=== PATIENT | male | born 1960 | race African-American/Black ===

== ENCOUNTER 2020-12-18 10:37 | Inpatient (IN) | payer OTHER ==
[2020-12-18 10:58] VITALS: BMI 23.8
[2020-12-18] MEDS ORDERED: SODIUM CHLORIDE 0.9% 500 ML INFUS.BAG IV ONE (11:35)
[2020-12-18] MEDS ORDERED: ONDANSETRON 4 MG/2 ML VIAL IVPUSH ONE (11:35)
[2020-12-18] MEDS ORDERED: ONDANSETRON 4 MG/2 ML VIAL ONE (12:08)
[2020-12-18 13:08] LABS: EOS % 0.9 % (0-4.5); HEMATOCRIT 26.3 % (35.4-49); HEMOGLOBIN 8.4 GM/dL (11.7-16.9); LYMPH % 46.7 % (8-40); MCH 27.6 pg (25.7-33.7); MCHC 32.1 g/dl (32.0-35.9); MEAN CELL VOLUME 86.1 fl (80-96); MEAN PLT VOLUME 9.1 fl (7.5-11.1); MONO % 19.2 % (3.8-10.2); NEUT % 32.2 % (42.8-82.8); PLATELET COUNT 168 K/MM3 (134-434); RBC 3.05 M/mm3 (4.00-5.60); RDW 14.8 % (11.9-15.9); WHITE BLOOD COUNT 3.3 K/mm3 (4.0-10.0)
[2020-12-18] MEDS ORDERED: ASPIRIN 81 MG CHEWABLE TABLETS PO ONE (13:15)
[2020-12-18] MEDS ORDERED: ASPIRIN 81 MG CHEWABLE TABLETS ONE (13:23)
[2020-12-18 13:31] LABS: CHLORIDE 99 mmol/L (98-107); POTASSIUM 3.6 mmol/L (3.5-5.1); SODIUM 143 mmol/L (136-145)
[2020-12-18 13:32] LABS: EPI CELLS 8 /uL (0-25.1); HYALINE CASTS 1 /uL (0-3.1); PH,URINE >= 9.0 (5.0-8.0); URINE APPEARANCE CLEAR; URINE BACTERIA 142 /uL (0-1359); URINE BILIRUBIN NEGATIVE (NEGATIVE); URINE COLOR YELLOW; URINE GLUCOSE (UA) NEGATIVE (NEGATIVE); URINE KETONE TRACE (NEGATIVE); URINE LEUK ESTERASE NEGATIVE (NEGATIVE); URINE NITRITE NEGATIVE (NEGATIVE); URINE PROTEIN 2+ (NEGATIVE); URINE RBC 5 /uL (0-23.9); URINE WBC 1 /uL (0-25.8)
[2020-12-18 13:34] LABS: ALBUMIN 4.1 g/dl (3.4-5.0); ANION GAP 5 MMOL/L (8-16); BLOOD UREA NITROGEN 14.7 mg/dL (7-18); CALCIUM 9.7 mg/dL (8.5-10.1); CO2 39 mmol/L (21-32); LIPASE 161 U/L (73-393)
[2020-12-18 13:35] LABS: GLUCOSE,RANDOM 79 mg/dL (74-106)
[2020-12-18 13:37] LABS: CREATININE 1.1 mg/dL (0.55-1.3); SGOT/AST 202 U/L (15-37); SGPT/ALT 88 U/L (13-61)
[2020-12-18 13:39] LABS: BILIRUBIN,TOTAL 0.5 mg/dL (0.2-1); TOT PROT 9.1 g/dl (6.4-8.2)
[2020-12-18 13:40] LABS: ALK PHOS 66 U/L (45-117)
[2020-12-18] MEDS ORDERED: FOLIC ACID INJECTION - 1 MG, THIAMINE HCL 100 MG, MULTIVIT INJECTION ADULT 10 ML in SOD... IVPB ONE (18:26)
[2020-12-18] MEDS ORDERED: LORazepam 2 MG/ML SDV VIAL IVPUSH PRN (18:29)
[2020-12-18] MEDS ORDERED: SODIUM CHLORIDE 1,000 ML IV SCH (18:30)
[2020-12-18 22:10] LABS: URINE BARBITURATES NEGATIVE ng/ml (CUTOFF=200); URINE BENZODIAZEPINES NEGATIVE ng/ml (CUTOFF=200)
[2020-12-18 22:11] LABS: COCAINE, UR NEGATIVE ng/ml (CUTOFF=300); METHADONE, UR NEGATIVE ng/ml (CUTOFF=300)
[2020-12-18 22:12] LABS: URINE AMPHETAMINES NEGATIVE ng/ml (CUTOFF=500)
[2020-12-18 22:15] LABS: OPIATES, URI POSITIVE ng/ml (CUTOFF=300); PHENCYCLIDINE,URINE POSITIVE ng/ml (CUTOFF=25)
[2020-12-19 08:01] LABS: BASO % 0.6 % (0-2.0); HEMATOCRIT 40.9 % (35.4-49); HEMOGLOBIN 13.3 GM/dL (11.7-16.9); LYMPH % 24.1 % (8-40); MCH 27.7 pg (25.7-33.7); MCHC 32.4 g/dl (32.0-35.9); MEAN CELL VOLUME 85.5 fl (80-96); MEAN PLT VOLUME 9.8 fl (7.5-11.1); MONO % 14.1 % (3.8-10.2); NEUT % 61.2 % (42.8-82.8); PLATELET COUNT 283 K/MM3 (134-434); RBC 4.79 M/mm3 (4.00-5.60); RDW 14.8 % (11.9-15.9); WHITE BLOOD COUNT 6.3 K/mm3 (4.0-10.0)
[2020-12-19 08:34] LABS: POTASSIUM 3.1 mmol/L (3.5-5.1)
[2020-12-19 08:36] LABS: ALBUMIN 4.1 g/dl (3.4-5.0); MAGNESIUM 2.4 mg/dL (1.8-2.4)
[2020-12-19 08:37] LABS: CALCIUM 9.4 mg/dL (8.5-10.1)
[2020-12-19 08:39] LABS: CREATININE 1.2 mg/dL (0.55-1.3)
[2020-12-19 08:41] LABS: TOT PROT 8.9 g/dl (6.4-8.2)
[2020-12-19 08:42] LABS: BILIRUBIN,TOTAL 0.5 mg/dL (0.2-1)
[2020-12-19] MEDS ORDERED: LACTATED RINGERS SOLUTION 1,000 ML/1,000 ML INFUS.BAG IV SCH (10:15)
[2020-12-19] MEDS: ENOXAPARIN NA (PORCINE) 40 MG/0.4 ML DISP.SYRIN SQ SCH (11:02)
[2020-12-19] MEDS: FOLIC ACID 1 MG TABLET (FP) PO SCH (11:02)
[2020-12-19] MEDS: THIAMINE HCL 100 MG TABLET (FP) PO SCH (11:02)
[2020-12-19] MEDS: KCL 10 MEQ IVPB 10 MEQ/100 ML INFUS.BAG IVPB SCH ×3 (11:02→13:59)
[2020-12-19] MEDS: MULTIVITAMINS (DAILY MVI) TABLET (FP) PO SCH (11:02)
[2020-12-19 13:07] LABS: HIV INTERPRETATION NEGATIVE (NEGATIVE)
[2020-12-19] MEDS: POTASSIUM CHLORIDE TABS 20 MEQ TABLET.ER (FP) PO SCH ×2 (18:47→23:12)
[2020-12-19] MEDS ORDERED: TRIMETHOBENZAMIDE HCL 200MG/2ML INJ IM ONE (23:55)
[2020-12-20] MEDS: KCL 10 MEQ IVPB 10 MEQ/100 ML INFUS.BAG IVPB SCH ×5 (00:49→16:13)
[2020-12-20] MEDS ORDERED: amLODIPine BESYLATE 5 MG TABLET (FP) PO ONE (01:38)
[2020-12-20 07:24] LABS: BASO % 0.4 % (0-2.0); EOS % 0.3 % (0-4.5); HEMOGLOBIN 14.4 GM/dL (11.7-16.9); LYMPH % 19.1 % (8-40); MCH 27.9 pg (25.7-33.7); MCHC 32.8 g/dl (32.0-35.9); MEAN PLT VOLUME 10.3 fl (7.5-11.1); MONO % 10.9 % (3.8-10.2); NEUT % 69.3 % (42.8-82.8); PLATELET COUNT 272 K/MM3 (134-434); RBC 5.17 M/mm3 (4.00-5.60); RDW 15.3 % (11.9-15.9); WHITE BLOOD COUNT 12.3 K/mm3 (4.0-10.0)
[2020-12-20 07:55] LABS: POTASSIUM 3.2 mmol/L (3.5-5.1)
[2020-12-20 08:00] LABS: CALCIUM 9.4 mg/dL (8.5-10.1)
[2020-12-20 08:01] LABS: BLOOD UREA NITROGEN 25.4 mg/dL (7-18)
[2020-12-20 08:04] LABS: CREATININE 1.2 mg/dL (0.55-1.3)
[2020-12-20 08:05] LABS: TOT PROT 9.3 g/dl (6.4-8.2)
[2020-12-20] MEDS ORDERED: POTASSIUM CHLORIDE 40 MEQ in SODIUM CHLORIDE 1,000 ML IV SCH (10:00)
[2020-12-20] MEDS: FOLIC ACID 1 MG TABLET (FP) PO SCH (10:19)
[2020-12-20] MEDS: POTASSIUM CHLORIDE TABS 20 MEQ TABLET.ER (FP) PO SCH (10:20)
[2020-12-20] MEDS: THIAMINE HCL 100 MG TABLET (FP) PO SCH (10:22)
[2020-12-20] MEDS: ENOXAPARIN NA (PORCINE) 40 MG/0.4 ML DISP.SYRIN SQ SCH (10:22)
[2020-12-20] MEDS: MULTIVITAMINS (DAILY MVI) TABLET (FP) PO SCH (10:22)
[2020-12-20] MEDS: amLODIPine BESYLATE 10 MG TABLET (FP) PO SCH (10:24)
[2020-12-20 13:30] LABS: MAGNESIUM 2.3 mg/dL (1.8-2.4)
[2020-12-20 13:34] LABS: PHOSPHOROUS 3.6 mg/dL (2.5-4.9)
[2020-12-20] MEDS ORDERED: PALONOSETRON HCL 0.25 MG/5 ML VIAL IVPUSH PRN (13:51)
[2020-12-20] MEDS: TRIMETHOBENZAMIDE HCL 300 MG CAPSULE PO PRN (17:17)
[2020-12-20] MEDS ORDERED: morphine SULFATE 4 MG/ML VIAL IVPUSH PRN (19:02)
[2020-12-21] MEDS: amLODIPine BESYLATE 10 MG TABLET (FP) PO SCH (08:00)
[2020-12-21 08:42] LABS: HEMATOCRIT 44.7 % (35.4-49); HEMOGLOBIN 14.8 GM/dL (11.7-16.9); MCH 27.7 pg (25.7-33.7); MCHC 33.1 g/dl (32.0-35.9); MEAN CELL VOLUME 83.9 fl (80-96); PLATELET COUNT 310 K/MM3 (134-434); RBC 5.33 M/mm3 (4.00-5.60); RDW 15.1 % (11.9-15.9); WHITE BLOOD COUNT 15.6 K/mm3 (4.0-10.0)
[2020-12-21 08:56] LABS: POTASSIUM 4.3 mmol/L (3.5-5.1)
[2020-12-21 09:04] LABS: ALBUMIN 3.7 g/dl (3.4-5.0); BLOOD UREA NITROGEN 31.2 mg/dL (7-18); CALCIUM 9.4 mg/dL (8.5-10.1); CREATININE 1.1 mg/dL (0.55-1.3)
[2020-12-21 09:05] LABS: BILIRUBIN,TOTAL 0.7 mg/dL (0.2-1)
[2020-12-21 09:06] LABS: TOT PROT 8.7 g/dl (6.4-8.2)
[2020-12-21] MEDS: SODIUM CHLORIDE 1,000 ML IV SCH (10:31)
[2020-12-21] MEDS: THIAMINE HCL 100 MG TABLET (FP) PO SCH (10:31)
[2020-12-21] MEDS: FOLIC ACID 1 MG TABLET (FP) PO SCH (10:31)
[2020-12-21] MEDS: MULTIVITAMINS (DAILY MVI) TABLET (FP) PO SCH (10:31)
[2020-12-21] MEDS ORDERED: ONDANSETRON 4 MG/2 ML VIAL IVPUSH ONE (10:37)
[2020-12-21] MEDS: ENOXAPARIN NA (PORCINE) 40 MG/0.4 ML DISP.SYRIN SQ SCH (11:21)
[2020-12-21] MEDS ORDERED: MORPHINE SULFATE 2 MG/ML VIAL IVPUSH PRN (16:35)
[2020-12-21 18:45] LABS: EPI CELLS >36 /uL (0-25.1); HYALINE CASTS 89 /uL (0-3.1); PH,URINE 5.5 (5.0-8.0); URINE APPEARANCE CLOUDY; URINE BACTERIA 1989 /uL (0-1359); URINE BILIRUBIN NEGATIVE (NEGATIVE); URINE COLOR YELLOW; URINE GLUCOSE (UA) NEGATIVE (NEGATIVE); URINE KETONE NEGATIVE (NEGATIVE); URINE LEUK ESTERASE 1+ (NEGATIVE); URINE NITRITE POSITIVE (NEGATIVE); URINE PROTEIN 1+ (NEGATIVE); URINE RBC 3 /uL (0-23.9); URINE WBC 18 /uL (0-25.8)
[2020-12-21 20:10] LABS: HEP B CORE AB, TOT Negative (Negative)
[2020-12-22 07:44] LABS: HEMATOCRIT 38.7 % (35.4-49); HEMOGLOBIN 12.7 GM/dL (11.7-16.9); MCH 27.8 pg (25.7-33.7); MCHC 32.8 g/dl (32.0-35.9); MEAN CELL VOLUME 84.8 fl (80-96); MEAN PLT VOLUME 10.1 fl (7.5-11.1); PLATELET COUNT 232 K/MM3 (134-434); RBC 4.56 M/mm3 (4.00-5.60); RDW 15.3 % (11.9-15.9); WHITE BLOOD COUNT 12.1 K/mm3 (4.0-10.0)
[2020-12-22 07:53] LABS: POTASSIUM 4.1 mmol/L (3.5-5.1)
[2020-12-22 07:58] LABS: BLOOD UREA NITROGEN 22.1 mg/dL (7-18); CALCIUM 8.2 mg/dL (8.5-10.1)
[2020-12-22 07:59] LABS: MAGNESIUM 2.1 mg/dL (1.8-2.4)
[2020-12-22 08:01] LABS: CREATININE 0.9 mg/dL (0.55-1.3); PHOSPHOROUS 2.3 mg/dL (2.5-4.9)
[2020-12-22 08:02] LABS: BILIRUBIN,TOTAL 0.7 mg/dL (0.2-1)
[2020-12-22 08:03] LABS: TOT PROT 7.1 g/dl (6.4-8.2)
[2020-12-22] MEDS ORDERED: PT OWN MED DRAWER 7, Y5N ONE ×2 (09:28→21:21)
[2020-12-22] MEDS: ENOXAPARIN NA (PORCINE) 40 MG/0.4 ML DISP.SYRIN SQ SCH (09:43)
[2020-12-22] MEDS: MULTIVITAMINS (DAILY MVI) TABLET (FP) PO SCH (09:43)
[2020-12-22] MEDS: amLODIPine BESYLATE 10 MG TABLET (FP) PO SCH (09:43)
[2020-12-22] MEDS: THIAMINE HCL 100 MG TABLET (FP) PO SCH (09:43)
[2020-12-22] MEDS: FOLIC ACID 1 MG TABLET (FP) PO SCH (09:43)
[2020-12-22] MEDS: TRIMETHOBENZAMIDE HCL 300 MG CAPSULE PO PRN ×2 (09:43→22:12)
[2020-12-22] MEDS ORDERED: THIAMINE HCL 200 MG/2 ML VIAL IVPB SCH ×2 (10:15→17:32)
[2020-12-22] MEDS ORDERED: amLODIPine BESYLATE 10 MG TABLET (FP) PO SCH (11:38)
[2020-12-22] MEDS ORDERED: NAPH,MB-DB/K PH,MBDB POWDER PACKET PO ONE (13:26)
[2020-12-22] MEDS: metoPROLOL SUCCINATE 25 MG TAB.SR.24H (FP) PO SCH (14:08)
[2020-12-22] MEDS: SODIUM CHLORIDE 1,000 ML IV SCH (17:49)
[2020-12-22] MEDS ORDERED: MELATONIN 5 MG TABLETS PO ONE (21:10)
[2020-12-22] MEDS ORDERED: MORPHINE SULFATE 2 MG/ML VIAL IVPUSH ONE (21:12)
[2020-12-22] MEDS ORDERED: ROSUVASTATIN CA 10 MG TABLET (FP) PO SCH (22:00)
[2020-12-23] MEDS: SODIUM CHLORIDE 1,000 ML IV SCH ×2 (07:47→10:23)
[2020-12-23 08:52] LABS: EOS % 2.1 % (0-4.5); HEMATOCRIT 38.8 % (35.4-49); HEMOGLOBIN 12.7 GM/dL (11.7-16.9); LYMPH % 35.7 % (8-40); MCH 27.9 pg (25.7-33.7); MCHC 32.8 g/dl (32.0-35.9); MEAN PLT VOLUME 9.6 fl (7.5-11.1); NEUT % 50.2 % (42.8-82.8); PLATELET COUNT 257 K/MM3 (134-434); RBC 4.56 M/mm3 (4.00-5.60); RDW 15.1 % (11.9-15.9); WHITE BLOOD COUNT 7.9 K/mm3 (4.0-10.0)
[2020-12-23 09:30] LABS: CALCIUM 8.9 mg/dL (8.5-10.1)
[2020-12-23 09:31] LABS: BLOOD UREA NITROGEN 14.9 mg/dL (7-18)
[2020-12-23 09:34] LABS: PHOSPHOROUS 2.4 mg/dL (2.5-4.9)
[2020-12-23 09:35] LABS: BILIRUBIN,TOTAL 0.8 mg/dL (0.2-1); TOT PROT 7.1 g/dl (6.4-8.2)
[2020-12-23 09:37] LABS: POTASSIUM 3.6 mmol/L (3.5-5.1)
[2020-12-23] MEDS ORDERED: PANTOPRAZOLE 40 MG TABLET PO SCH (10:00)
[2020-12-23] MEDS ORDERED: VALSARTAN 40 MG TABLET PO SCH (10:00)
[2020-12-23] MEDS ORDERED: THIAMINE HCL 100 MG TABLET (FP) PO SCH (10:00)
[2020-12-23] MEDS ORDERED: ASPIRIN COATED 81 MG TABLET.EC PO SCH (10:00)
[2020-12-23] MEDS: FOLIC ACID 1 MG TABLET (FP) PO SCH (10:24)
[2020-12-23] MEDS: ENOXAPARIN NA (PORCINE) 40 MG/0.4 ML DISP.SYRIN SQ SCH (10:26)
[2020-12-23] MEDS: metoPROLOL SUCCINATE 25 MG TAB.SR.24H (FP) PO SCH (10:26)
[2020-12-23 14:46] VITALS: BP 149/73; PULSE 67; TEMP 98.1
[2020-12-23 15:09] LABS: HCV RNA GENOTYPE 2b (.)
== END 2020-12-23 16:37 | disposition home or self-care (01) | DRG 351 ==
LOC: JER 10:37 → JERBED 13:21 → OBSVTOIN 18:24 → MERGE 18:24 → J4W 12-19 04:42
PROVIDERS: ADMIT Internal Medicine; ATTEND Internal Medicine
PROC: HZ2ZZZZ Detoxification Services for Substance Abuse Treatment (ICD-10-PCS; principal; 2020-12-18)
DX: M62.82 Rhabdomyolysis (principal); R94.31 Abnormal electrocardiogram [ECG] [EKG]; E87.6 Hypokalemia; F11.20 Opioid dependence, uncomplicated; D64.9 Anemia, unspecified; I65.23 Occlusion and stenosis of bilateral carotid arteries; E87.1 Hypo-osmolality and hyponatremia; F10.129 Alcohol abuse with intoxication, unspecified; Z59.0 Homelessness; I25.119 Atherosclerotic heart disease of native coronary artery with unspecified angina pectoris; E78.00 Pure hypercholesterolemia, unspecified; D72.829 Elevated white blood cell count, unspecified; I12.9 Hypertensive chronic kidney disease with stage 1 through stage 4 chronic kidney disease, or unspecified chronic kidney disease; N18.9 Chronic kidney disease, unspecified; R74.01 Elevation of levels of liver transaminase levels; E78.5 Hyperlipidemia, unspecified; K40.90 Unilateral inguinal hernia, without obstruction or gangrene, not specified as recurrent
CPT/HCPCS: 36415; 70450-TC; 71045-TC-FY; 74177-TC; 80053; 80061; 80307; 81003; 82550; 82553; 82607; 82746; 82962; 83036; 83690; 83721; 83735; 84100; 84443; 84484; 85025; 85027; 86704; 86706; 86707; 86708; 86709; 87086; 87340; 87389; 87804; 87902; 93005; 93010; 93306-TC; 97116-GP; 97161-GP; 99285-25; C9803; G0378; Q9967; U0003

== ENCOUNTER 2020-12-26 16:08 | Emergency (ER) | payer OTHER ==
[2020-12-26 16:30] VITALS: BMI 22.8
[2020-12-26 18:56] VITALS: BP 118/61; PULSE 79; TEMP 97.7
== END 2020-12-26 18:56 | disposition home or self-care (01) ==
LOC: JER 16:08
DX: F11.90 Opioid use, unspecified, uncomplicated (principal)
CPT/HCPCS: 99283-25

== ENCOUNTER 2023-01-06 08:19 | Emergency (ER) | payer OTHER ==
[2023-01-06] MEDS ORDERED: MIDAZOLAM HCL 2 MG/2 ML SINGLE DOSE VIAL ONE ×3 (09:27→12:04)
[2023-01-06] MEDS ORDERED: MIDAZOLAM HCL 2 MG/2 ML SINGLE DOSE VIAL IVPUSH ONE (09:28)
[2023-01-06] MEDS ORDERED: MIDAZOLAM HCL 2 MG/2 ML SINGLE DOSE VIAL IM ONE ×3 (09:49→12:01)
[2023-01-06 11:36] VITALS: BP 139/88; PULSE 74; RESP 18; BMI 23.6
== END 2023-01-06 16:50 | disposition home or self-care (01) ==
LOC: JER 08:19
PROC: 3E033NZ Introduction of Analgesics, Hypnotics, Sedatives into Peripheral Vein, Percutaneous Approach (ICD-10-PCS; principal; 2023-01-06)
PROC: 3E023NZ Introduction of Analgesics, Hypnotics, Sedatives into Muscle, Percutaneous Approach (ICD-10-PCS; 2023-01-06)
PROC: 3E023NZ Introduction of Analgesics, Hypnotics, Sedatives into Muscle, Percutaneous Approach (ICD-10-PCS; 2023-01-06)
PROC: 3E023NZ Introduction of Analgesics, Hypnotics, Sedatives into Muscle, Percutaneous Approach (ICD-10-PCS; 2023-01-06)
DX: T40.1X1A Poisoning by heroin, accidental (unintentional), initial encounter (principal); S02.85XA Fracture of orbit, unspecified, initial encounter for closed fracture; S00.81XA Abrasion of other part of head, initial encounter; W19.XXXA Unspecified fall, initial encounter
CPT/HCPCS: 70450-TC; 70486-TC; 71045-TC-FY; 72125-TC; 93005; 93010; 99285-25